=== PATIENT | male | born 1940 | race Caucasian/White ===

== ENCOUNTER 2016-12-11 13:14 | Inpatient (IN) | payer OTHER, MEDICARE ==
[~2016-12-11] VITALS: Ht 157.5 cm; Wt 97.0 kg
[~2016-12-11 13:14] MED LIST: 1-ME1LIQ PO; ASPI81TA17 PO; CO Q200C3 PO; HYDR-2768 PO; ISOS60TA PO; METO50TA PO; MORP30SU PO; PRAV80 PO; SEA-1000 PO; TAB-TAB PO
[2016-12-11 13:16] VITALS: BP 145/66; PULSE 64; RESP 24; TEMP 97.2; O2SAT 85
[2016-12-11] MEDS ORDERED: ATOR1TAB18 PO (13:40)
[2016-12-11] MEDS ORDERED: ASPI81CH CHEW (13:40)
[2016-12-11] MEDS ORDERED: METO50TA PO (13:40)
[2016-12-11] MEDS ORDERED: HYDR25TA5 PO (13:40)
[2016-12-11] MEDS ORDERED: AMLO10TA2 PO (13:40)
[2016-12-11] MEDS ORDERED: NAPR250T PO (13:40)
[2016-12-11] MEDS ORDERED: ISOS60TA PO (13:40)
[2016-12-11] MEDS ORDERED: ACETAMINOPHEN/HYDROcodone 325 MG/5 MG TAB PO ONE (14:30)
--- NOTE | 2016-12-11 14:52 | PD ---
HPI Chief Complaint: Fall Time Seen by Provider: 14:03 Travel History International Travel<30 days: No Contact w/Intl Traveler<30days: No Traveled to known affect area: No History of Present Illness HPI This 76-year-old man who presents to the emergency department complaining of low back pain. He had a slip and fall backward on his back and head a couple days ago. No LOC. Complains now just of some shoulder pain, and severe low back pain. His a history of extensive back surgery with Dr. Tiago Caceres in 2011, with eleno placement. He states that since his surgery he is not been able to sleep lying flat and sleeps in a chair. He also complains of some increased lower extremity edema. No other complaints. History Past Medical History Narrative Medical History of neck and back surgery History of bladder cancer in 1990 CAD, history of CABG Hypertension Hyperlipidemia Social History Alcohol Use: No Tobacco Use: No Allergies-Medications (Allergen,Severity, Reaction): Coded Allergies: Penicillin (Verified Allergy, Severe, Swelling, 12/11/16) Reported Meds & Prescriptions Reported Meds & Active Scripts Active Reported Naproxen 250 Mg Tab 220 Mg PO BID Aspirin 81 Mg Chew 81 Mg CHEW DAILY Atorvastatin (Atorvastatin Calcium) 80 Mg Tab 80 Mg PO HS Amlodipine (Amlodipine Besylate) 10 Mg Tab 10 Mg PO DAILY Hydrochlorothiazide 25 Mg Tab 25 Mg PO DAILY Isosorbide Mononitrate ER (Isosorbide Mononitrate) 60 Mg Tab 60 Mg PO DAILY Metoprolol Tartrate 50 Mg Tab 50 Mg PO BID Review of Systems Except as stated in HPI: all other systems reviewed are Neg Physical Exam Narrative GENERAL: Well-appearing 76-year-old man, no acute distress. SKIN: Focused skin assessment warm/dry. HEAD: Atraumatic. Normocephalic. EYES: Pupils equal and round. No scleral icterus. No injection or drainage. ENT: No nasal bleeding or discharge. Mucous membranes pink and moist. NECK: Trachea midline. No JVD. CARDIOVASCULAR: Regular rate and rhythm. No murmur appreciated. RESPIRATORY: No accessory muscle use. Clear to auscultation. Breath sounds equal bilaterally. GASTROINTESTINAL: Abdomen soft, non-tender, nondistended. Hepatic and splenic margins not palpable. MUSCULOSKELETAL: No obvious deformities. Midline neck and back incisions. Some scarring. Mild diffuse tenderness. No obvious deformities infections or abnormalities. NEUROLOGICAL: Awake and alert. No obvious cranial nerve deficits. Motor grossly within normal limits. Normal speech. PSYCHIATRIC: Appropriate mood and affect; insight and judgment normal. Data Data Last Documented VS Vital Signs Date Time Temp Pulse Resp B/P Pulse Ox O2 Delivery O2 Flow Rate FiO2 12/11/16 13:16 97.2 64 24 145/66 85 Room Air Orders Acetamin-Hydrocod 325-5 Mg (Amo 5-325 (12/11/16 14:30) Spine, Lumbar Comp W/Obliq (12/11/16 ) Spine, Thoracic-Ap/Lat/Sw(3vw) (12/11/16 ) Basic Metabolic Panel (Bmp) (12/11/16 14:47) Morphine Inj (Morphine Inj) (12/11/16 15:15) Complete Blood Count With Diff (12/11/16 16:13) Furosemide Inj (Lasix Inj) (12/11/16 16:15) Ct Lumb Spine W/O Contrast (12/11/16 ) Place In Observation (12/11/16 ) Vital Signs (Adult) Q4H (12/11/16 16:14) Activity Oob With Assistance (12/11/16 16:14) Bedside Glucose BENI.AC&HS (12/11/16 16:14) Intake + Output BENI.QSHIFT (12/11/16 16:14) Diet Heart Healthy (12/11/16 Dinner) Sodium Chloride 0.9% Flush (Ns Flush) (12/11/16 16:15) Sodium Chloride 0.9% Flush (Ns Flush) (12/11/16 21:00) Acetaminophen (Tylenol) (12/11/16 16:15) Ondansetron Inj (Zofran Inj) (12/11/16 16:15) Resp Oxygen Kunal C Titrat 1-4 L (12/11/16 ) Pt Request For Service (12/11/16 16:14) Ot Request For Service (12/11/16 16:14) Heparin Inj (Heparin Inj) (12/11/16 16:15) Scd Bilateral/Knee High BENI.BID (12/11/16 16:14) Acetamin-Hydrocod 325-5 Mg (Amo 5-325 (12/11/16 16:15) Acetamin-Hydrocod 325-10 Mg (Amo 10-32 (12/11/16 16:15) Morphine Inj (Morphine Inj) (12/11/16 16:15) Morphine Inj (Morphine Inj) (12/11/16 16:15) Naloxone Inj (Narcan Inj) (12/11/16 16:15) Docusate Sodium-Senna (Gail-Colace) (12/11/16 21:00) Magnesium Hydroxide Liq (Milk Of Magnesi (12/11/16 16:15) Sennosides (Senokot) (12/11/16 16:15) Bisacodyl Supp (Dulcolax Supp) (12/11/16 16:15) Ct Brain W/O Iv Contrast(Rout) (12/11/16 ) Morphine Inj (Morphine Inj) (12/11/16 16:30) Labs Laboratory Tests Test 12/11/16 15:05 Sodium Level 143 MEQ/L Potassium Level 3.8 MEQ/L Chloride Level 102 MEQ/L Carbon Dioxide Level 36.2 MEQ/L Anion Gap 5 MEQ/L Blood Urea Nitrogen 18 MG/DL Creatinine 0.66 MG/DL Estimat Glomerular Filtration 117 ML/MIN Rate Random Glucose 83 MG/DL Calcium Level 9.3 MG/DL MDM Medical Decision Making Medical Screen Exam Complete: Yes Emergency Medical Condition: Yes Interpretation(s) T-spine x-ray: Previous fusion across the lower thoracic and lumbar spine. No acute fracture. Moderate degenerative disc disease throughout. Mild scoliosis. Lumbar spine x-ray: Previous fixation to the lower thoracic and lumbar spine L4. Left-sided sensation rotted broken at the level of L2. Minimal retrolisthesis of L4 on L5 with advanced degenerative this disease. Chronic retrolisthesis of L3 on L4 status post fusion. Differential Diagnosis Fracture, contusion, strain or sprain, head injury, other Narrative Course Medical decision-making 76-year-old man presents emergent [place] back pain after slip and fall on his back. History of extensive previous surgeries and hardware placement. States he hit his head 2. Is on a baby aspirin everyday. Denies any symptoms at all such as headache or confusion. We'll start with x-rays of his back. Large rods in the back may have scarring utility of CT imaging of the back. Reassess. FINAL: Patient was still severe back pain. X-rays show fractured eleno but no bony fractures. I spoke with Dr. Pfeiffer, patient can follow-up as an outpatient from their perspective for the eleno fracture. There is recommended patient having intractable pain consider CT imaging to look for occult compression fracture. I spoke with Dr. Little, for medicine. Will admit patient observation. We'll go to give him a dose of Lasix to reduce lower extremity edema which may been the cause of the fall to begin with. We'll also get CT of his back, and his head. Diagnosis Primary Impression: Intractable back pain Additional Impression: Fall Corey Harris MD Dec 11, 2016 14:52
[2016-12-11] MEDS ORDERED: MORPHINE SULFATE 4 MG/ML INJ IV ONE (15:15)
--- NOTE | 2016-12-11 15:36 | RADRPT ---
EXAM DATE/TIME: 12/11/2016 14:40 [facility] COMPARISON: [facility] ( [facility]), January 18, 2012, 18:24. INDICATIONS : Upper back pain. Patient fell backwards a few days ago. MEDICAL HISTORY : Hypertension. Hypercholesterolemia. SURGICAL HISTORY : CABG. Lumbar fusion. Cardiac cath. ENCOUNTER: Initial ACUITY: 4 - 6 days PAIN SCORE: 10/10 LOCATION: Bilateral upper back. FINDINGS: There is previous eleno fixation across the lower thoracic and lumbar spine. No acute fracture is ident ified on the current exam. Mild scoliosis. Moderate degenerative disc disease throughout. Previous CA BG. Elevated left hemidiaphragm. CONCLUSION: 1. Previous fusion across the lower thoracic and lumbar spine. No acute fracture. Moderate degenerati ve disc disease throughout. Mild scoliosis. Joe Leonardo MD on December 11, 2016 at 15:32 Board Certified Radiologist. This report was verified electronically.
--- NOTE | 2016-12-11 15:38 | RADRPT ---
EXAM DATE/TIME: 12/11/2016 14:41 [facility] COMPARISON: No previous studies available for comparison. INDICATIONS : Lower back pain. Patient fell backwards a few days ago. MEDICAL HISTORY : Hypertension. Hypercholesterolemia. SURGICAL HISTORY : CABG. Lumbar fusion. Cardiac cath. ENCOUNTER: Initial ACUITY: 4 - 6 days PAIN SCORE: 10/10 LOCATION: Bilateral lower back. FINDINGS: There is previous fusion across the lower thoracic and lumbar spine to the level of L4. There is a mi nimal retrolisthesis of L4 on L5 with advanced degenerative disc disease at L4-5. The left sided fixa tion eleno is broken at the level of L2. There is a residual retrolisthesis of L3 on L4 as well. Scolio sis noted. CONCLUSION: 1. Previous fixation of the lower thoracic and lumbar spine to L4. Left-sided fixation eleno is broken at the level of L2. Minimal retrolisthesis of L4 on L5 with advanced degenerative disc disease. Chron ic retrolisthesis of L3 on L4 status post fusion. Joe Leonardo MD on December 11, 2016 at 15:34 Board Certified Radiologist. This report was verified electronically.
[2016-12-11 15:39] LABS: BICARBONATE 36.2 MEQ/L (21.0-32.0); POTASSIUM 3.8 MEQ/L (3.5-5.1)
[2016-12-11] MEDS ORDERED: ONDANSETRON HCL 4 MG/2 ML VIAL IVP PRN (16:15)
[2016-12-11] MEDS ORDERED: FUROSEMIDE 20 MG/2 ML VIAL IV PUSH ONE (16:15)
[2016-12-11] MEDS ORDERED: NALOXONE HCL 0.4 MG/ML AMP IV PRN (16:15)
[2016-12-11] MEDS ORDERED: BISACODYL 10 MG SUPP RECTAL PRN (16:15)
[2016-12-11] MEDS ORDERED: SODIUM CHLORIDE 0.9% FLUSH 10 ML FLUSH IV FLUSH PRN (16:15)
[2016-12-11] MEDS ORDERED: SENNOSIDES 8.6 MG TAB PO PRN (16:15)
[2016-12-11] MEDS ORDERED: MAGNESIUM HYDROXIDE SUSP 30 ML CUP PO PRN (16:15)
[2016-12-11] MEDS ORDERED: MORPHINE SULFATE 4 MG/ML INJ IV PRN ×2 (16:15)
[2016-12-11] MEDS ORDERED: MORPHINE SULFATE 4 MG/ML INJ IV PUSH PRN (16:30)
--- NOTE | 2016-12-11 17:08 | RADRPT ---
EXAM DATE/TIME: 12/11/2016 16:47 [facility] COMPARISON: No previous studies available for comparison. INDICATIONS : Fall backwards today onto concrete, cephalgia and lower back pain. RADIATION DOSE: 56.35 CTDIvol (mGy) MEDICAL HISTORY : Carcinoma, bladder. Hypertension. Cardiovascular disease SURGICAL HISTORY : laminectomy ENCOUNTER: Initial ACUITY: 1 day PAIN SCALE: 7/10 LOCATION: Bilateral head TECHNIQUE: Multiple contiguous axial images were obtained of the head. Using automated exposure control and adj ustment of the mA and/or kV according to patient size, radiation dose was kept as low as reasonably a chievable to obtain optimal diagnostic quality images. DICOM format image data is available electro nically for review and comparison. FINDINGS: CEREBRUM: The ventricles are normal for age. No evidence of midline shift, mass lesion, hemorrhage or acute in farction. No extra-axial fluid collections are seen. POSTERIOR FOSSA: The cerebellum and brainstem are intact. The 4th ventricle is midline. The cerebellopontine angle i s unremarkable. EXTRACRANIAL: The visualized portion of the orbits is intact. SKULL: The calvaria is intact. No evidence of skull fracture. CONCLUSION: Normal examination for a patient of this age. Joe Leonardo MD on December 11, 2016 at 17:03 Board Certified Radiologist. This report was verified electronically.
[2016-12-11 17:10] LABS: AUTOMATED NEUTROPHIL # 4.6 TH/MM3 (1.8-7.7); BASOPHIL % 0.2 % (0.0-2.0); EOSINOPHIL # 0.3 TH/MM3 (0-0.4); EOSINOPHIL % 3.4 % (0.0-4.0); HEMATOCRIT 49.4 % (39.0-51.0); HEMO FLAGS DIFF FINAL; LYMPH % 26.4 % (9.0-44.0); LYMPHOCYTE # 2.2 TH/MM3 (1.0-4.8); MEAN CELL VOLUME 93.3 FL (80.0-100.0); MEAN CORPUSCULAR HEMOGLOBIN 31.1 PG (27.0-34.0); MEAN CORPUSCULAR HGB CONC 33.3 % (32.0-36.0); MONO % 13.7 % (0.0-8.0); NEUT % 56.3 % (16.0-70.0); PLATELET COUNT 219 TH/MM3 (150-450); RED BLOOD COUNT 5.29 MIL/MM3 (4.50-5.90); RED CELL DISTRIBUTION WIDTH 15.2 % (11.6-17.2); WHITE BLOOD COUNT 8.2 TH/MM3 (4.0-11.0)
[2016-12-11 17:24] VITALS: BP 139/72; PULSE 73; RESP 20
--- NOTE | 2016-12-11 17:28 | RADRPT ---
EXAM DATE/TIME: 12/11/2016 16:51 [facility] COMPARISON: No previous studies available for comparison. INDICATIONS : Fall backwards today onto concrete, cephalgia and lower back pain. RADIATION DOSE: 35.21 CTDIvol (mGy) MEDICAL HISTORY : Hypertension. Cardiovascular disease Carcinoma, bladder. SURGICAL HISTORY : laminectomy ENCOUNTER: Initial ACUITY: 1 day PAIN SCALE: 7/10 LOCATION: Bilateral lower back TECHNIQUE: Volumetric scanning of the lumbar spine was performed. Multiplanar reconstructions in the sagittal, coronal and oblique axial planes were performed. Using automated exposure control and adjustment of the mA and/or kV according to patient size, radiation dose was kept as low as reasonably achievable t o obtain optimal diagnostic quality images. DICOM format image data is available electronically for review and comparison. FINDINGS: There is postoperative eleno fixation of the lower thoracic and lumbar spine to the level of L4. Pedicl e screws are present at [id number] and also at L2, L3 and L4. Left-sided spinal fixation eleno is broken at the level of L2. There is a mild rotatory scoliosis. There is a chronic grade 1 retrolisthesis of L3 on L4 status post fusion. Minimal retrolisthesis of L 4 on L5 with advanced degenerative disc disease at this level. Multiple laminectomy defects are noted in the lumbar spine. No acute fractures seen in the lumbar spine. On the left side there is bony foraminal stenosis or L3- 4-5 and also on the right side. No significant central canal stenosis is identified. CONCLUSION: 1. Postoperative spinal fixation as above. Left-sided fixation eleno is broken at the level of L2. 2. Grade 1 retrolisthesis of L3 on L4 which is fused. 3. No significant bony central canal stenosis. Mild scoliosis. 4. No acute fracture. 5. Incidental small right pleural effusion. Joe Leonardo MD on December 11, 2016 at 17:17 Board Certified Radiologist. This report was verified electronically.
--- NOTE | 2016-12-11 17:57 | HHI.HP ---
HPI Service [facility] Primary Care Physician Bran Garnett MD Admission Diagnosis intractable back pain Diagnoses: Chief Complaint: Back pain, intractable Travel History International Travel<30 Days: No Contact w/Intl Traveler <30 Da: No Traveled to Known Affected Are: No History of Present Illness Written by Maty Steel, acting as scribe for Dr. Little on 12/11/16 at 17:35. Patient is a 76 year old male with primary medical history of HTN, HLD , bladder cancer treated, back surgery in the past who came into the hospital for complaints of severe lower back pain. As per patient pain was 10-1/2 over 10 when he first came in prior to being given pain medication. Now reports that the pain is 8/10, constant, sharp, associated with heavy breathing, relieved by pain medication - given morphine IV. He states that he had a slip and fall backward on his back and had a couple of days ago without any loss of consciousness. States that he have back surgery with eleno placement [place] [address] Tiago Caceres. Patient also reports bilateral lower extremity edema that has been going on for 2 weeks, on and off. He is being seen by [facility] and is to schedule appointment for next month. Denies SOB/ dyspnea. Denies chest pain, palpitations, headaches, dizziness. Denies fevers, chills, n/v/d. Denies dysuria. Review of Systems Except as stated in HPI: all other systems reviewed are Neg Past Family Social History Past Medical History HTN CAD HLD Bladder cancer that was treated Urinary incontinence Past Surgical History CABG in 1997 History of neck and back surgery Reported Medications Reported Meds & Active Scripts Active Reported Naproxen 250 Mg Tab 220 Mg PO BID Aspirin 81 Mg Chew 81 Mg CHEW DAILY Atorvastatin (Atorvastatin Calcium) 80 Mg Tab 80 Mg PO HS Amlodipine (Amlodipine Besylate) 10 Mg Tab 10 Mg PO DAILY Hydrochlorothiazide 25 Mg Tab 25 Mg PO DAILY Isosorbide Mononitrate ER (Isosorbide Mononitrate) 60 Mg Tab 60 Mg PO DAILY Metoprolol Tartrate 50 Mg Tab 50 Mg PO BID Allergies: Coded Allergies: Penicillin (Verified Allergy, Severe, Swelling, 12/11/16) Active Ordered Medications Current Medications Medications (Trade) Dose Ordered Sig/Keisha Route Start Time Stop Time Status Last Admin (NS Flush) 2 ml UNSCH PRN IV FLUSH 12/11/16 16:15 (NS Flush) 2 ml BID IV FLUSH 12/11/16 21:00 (Tylenol) 650 mg Q4H PRN PO 12/11/16 16:15 (Zofran Inj) 4 mg Q6H PRN IVP 12/11/16 16:15 (Heparin Inj) 5,000 units Q8H SQ 12/11/16 18:00 (Preston 5-325 Mg) 1 tab Q4H PRN PO 12/11/16 16:15 (Preston 10-325 Mg) 1 tab Q4H PRN PO 12/11/16 16:15 (Morphine Inj) 4 mg Q4H PRN IV 12/11/16 16:15 (Narcan Inj) 0.4 mg UNSCH PRN IV 12/11/16 16:15 (Gail-Colace) 1 tab BID PO 12/11/16 21:00 (Milk Of Magnesia Liq) 30 ml Q12H PRN PO 12/11/16 16:15 (Senokot) 17.2 mg Q12H PRN PO 12/11/16 16:15 (Dulcolax Supp) 10 mg DAILY PRN RECTAL 12/11/16 16:15 (Morphine Inj) 4 mg ONCE PRN IV PUSH 12/11/16 16:30 12/11/16 16:33 Family History Father of heart failure Mother's medical history include hypertension Social History Reports alcohol use daily, wine every dinner Denies tobacco use Denies illicit drug use Physical Exam Vital Signs Vital Signs Date Time Temp Pulse Resp B/P Pulse Ox O2 Delivery O2 Flow Rate FiO2 12/11/16 17:24 73 20 139/72 12/11/16 13:16 97.2 64 24 145/66 85 Room Air Physical Exam GENERAL: This is a overweight, well-developed patient, in no apparent distress. SKIN: Warm and dry. HEAD: Atraumatic. Normocephalic. No temporal or scalp tenderness. EYES: Pupils equal round and reactive. Extraocular motions intact. No scleral icterus. No injection or drainage. ENT: Nose without bleeding. Throat without erythema. Uvula midline. Airway patent. NECK: Trachea midline. No JVD or lymphadenopathy. CARDIOVASCULAR: Regular rate and rhythm without murmurs, gallops, or rubs. RESPIRATORY: CTA. No wheezes, rales, or rhonchi. GASTROINTESTINAL: Abdomen obese, soft, non-tender, nondistended. Bowel sounds active 4 MUSCULOSKELETAL: Extremities without clubbing, cyanosis, bilateral lower extremity +2 edema. Lumbar tenderness. NEUROLOGICAL: Awake and alert. Oriented to person, place, time. Motor and sensory grossly within normal limits. No focal neuro deficit. Normal speech. Laboratory Laboratory Tests Test 12/11/16 12/11/16 15:05 16:45 Sodium Level 143 Potassium Level 3.8 Chloride Level 102 Carbon Dioxide Level 36.2 Anion Gap 5 Blood Urea Nitrogen 18 Creatinine 0.66 Estimat Glomerular Filtration 117 Rate Random Glucose 83 Calcium Level 9.3 White Blood Count 8.2 Red Blood Count 5.29 Hemoglobin 16.4 Hematocrit 49.4 Mean Corpuscular Volume 93.3 Mean Corpuscular Hemoglobin 31.1 Mean Corpuscular Hemoglobin 33.3 Concent Red Cell Distribution Width 15.2 Platelet Count 219 Mean Platelet Volume 9.8 Neutrophils (%) (Auto) 56.3 Lymphocytes (%) (Auto) 26.4 Monocytes (%) (Auto) 13.7 Eosinophils (%) (Auto) 3.4 Basophils (%) (Auto) 0.2 Neutrophils # (Auto) 4.6 Lymphocytes # (Auto) 2.2 Monocytes # (Auto) 1.1 Eosinophils # (Auto) 0.3 Basophils # (Auto) 0.0 CBC Comment DIFF FINAL Differential Comment Result Diagram: 12/11/16 1645 12/11/16 1505 Imaging Last Impressions Thoracic Spine X-Ray 12/11/16 0000 Signed Impressions: Service Date/Time: Sunday, December 11, 2016 14:40 - CONCLUSION: 1. Previous fusion across the lower thoracic and lumbar spine. No acute fracture. Moderate degenerative disc disease throughout. Mild scoliosis. Joe Leonardo MD Lumbar Spine X-Ray 12/11/16 0000 Signed Impressions: Service Date/Time: Sunday, December 11, 2016 14:41 - CONCLUSION: 1. Previous fixation of the lower thoracic and lumbar spine to L4. Left-sided fixation eleno is broken at the level of L2. Minimal retrolisthesis of L4 on L5 with advanced degenerative disc disease. Chronic retrolisthesis of L3 on L4 status post fusion. Joe Leonardo MD Lumbar Spine CT 12/11/16 0000 Signed Impressions: Service Date/Time: Sunday, December 11, 2016 16:51 - CONCLUSION: 1. Postoperative spinal fixation as above. Left-sided fixation eleno is broken at the level of L2. 2. Grade 1 retrolisthesis of L3 on L4 which is fused. 3. No significant bony central canal stenosis. Mild scoliosis. 4. No acute fracture. 5. Incidental small right pleural effusion. Joe Leonardo MD Head CT 12/11/16 0000 Signed Impressions: Service Date/Time: Sunday, December 11, 2016 16:47 - CONCLUSION: Normal examination for a patient of this age. Joe Leonardo MD Assessment and Plan Problem List: (1) Intractable back pain ICD Code: M54.9 Status: Acute (2) Fall ICD Code: W19.XXXA Status: Acute Assessment and Plan Patient is a 76 year old male with primary medical history of HTN, HLD , bladder cancer treated, back surgery in the past who came into the hospital for complaints of severe lower back pain, status post fall 2 days ago. Status post fall, intractable pain lower back pain - Patient had previous back surgery done by Dr. Caceres. Pain is been unrelieved at home. Patient was provided with IV morphine in the ED with relief. - Head CT showed normal examination for a patient of this age - Lumbar spine CT showed postoperative spinal fixation as above. Left-sided fixation eleno is broken at the level of L2. 2. Grade 1 retrolithiasis of L3 on L4 which is fused. 3. No significant bony central canal stenosis. Mild scoliosis. 4. No acute fracture. 5. Incidental small right pleural effusion - Lumbar spine x-ray showed 1. Previous fixation of the lower thoracic and lumbar spine to L4. Left-sided fixation eleno is broken at the level of L2. Minimal retrolisthesis of L4 on L5 with advanced degenerative disc disease. Chronic retrolisthesis of L3 on L4 status post fusion - Thoracic spine x-ray showed 1. Previous fusion across the lower thoracic and lumbar spine. No acute fracture. Moderate degenerative disc disease throughout. Mild scoliosis. - Spoke with orthopedist, states that no surgical intervention for now, unknown if the left-sided fixation eleno that is broken at the level of L2 is new or old. He will need to follow up as an outpatient. - Continue morphine IV for breakthrough pain, Preston when necessary based on pain scale - If patient's pain is improved tomorrow we'll possibly discharge and have a follow-up with orthopedic as an outpatient History of CABG, now with bilateral lower extremity edema - On and off edema 2 weeks, patient has been compliant with medication hydrochlorothiazide as prescribed by lead php developer - Patient is being followed by [facility] - Will do 2-D echo to rule out heart failure - Also had incidental finding of pleural effusion on CT - Lasix 20 mg IV given, will continue with diuresis - May be dcd with lasix po if warranted EtOH use - CIWA protocol, monitor for withdrawals. - Folic acid, thiamine supplementation HTN - Continue with home meds - Monitor trend DVT prop heparin Code Status Full code Discussed Condition With Patient, , nursing, ED attending This note was transcribed by scribe []. I, Dr. Renay Little personally performed the history, physical exam, and medical decision making; and confirmed the accuracy of the information in the transcribed note. Authenticated by Dr. Renay Little on 12/11/16 at 19:37. Maty Jenkins Dec 11, 2016 17:56 Renay Little MD Dec 11, 2016 19:38
[2016-12-11] MEDS: HEPARIN SODIUM - SQ 10,000 UNITS/ML VIAL SQ SCH (18:00)
[2016-12-11] MEDS: FOLIC ACID 1 MG TAB PO SCH (18:52)
[2016-12-11] MEDS: THIAMINE HCL 100 MG TAB PO SCH (18:52)
[2016-12-11 19:26] VITALS: BP 138/70; PULSE 77; RESP 16; TEMP 98.4; O2SAT 89
[2016-12-11] MEDS ORDERED: LORazepam 1 MG TAB PO PRN (19:45)
[2016-12-11] MEDS ORDERED: FLUMAZENIL 0.5 MG/5 ML VIAL IV PUSH PRN (19:45)
[2016-12-11] MEDS ORDERED: LORazepam 2 MG/ML VIAL IV PUSH PRN ×4 (19:45)
[2016-12-11] MEDS ORDERED: LORazepam 2 MG TAB PO PRN (19:45)
[2016-12-11 21:00] VITALS: O2SAT 90
[2016-12-11] MEDS: DOCUSATE SODIUM 50 MG/SENNA 8.6 MG TAB PO SCH (21:00)
[2016-12-11 21:45] VITALS: RESP 20; O2SAT 85
[2016-12-11] MEDS: ATORVASTATIN 80 MG TAB PO SCH (21:46)
[2016-12-11] MEDS: ACETAMINOPHEN/HYDROcodone 325 MG/10 MG TAB PO PRN (21:47)
[2016-12-11] MEDS: METOPROLOL TARTRATE 50 MG TAB PO SCH (21:47)
[2016-12-11] MEDS: SODIUM CHLORIDE 0.9% FLUSH 10 ML FLUSH IV FLUSH SCH (21:48)
[2016-12-11 22:00] VITALS: O2SAT 97
[2016-12-11] MEDS ORDERED: FUROSEMIDE 40 MG/4 ML VIAL IV PUSH ONE (22:45)
[2016-12-11 23:03] LABS: BLOOD GAS BASE EXCESS 11.7 mmol/L (-2-2); BLOOD GAS CARBOXYHEMOGLOBIN 1.6 % (0-4); BLOOD GAS HCO3 38 mmol/L (22-26); BLOOD GAS METHEMOGLOBIN 1.1 % (0-2); BLOOD GAS O2 HGB SATURATION 97 % (90-100); BLOOD GAS OXYGEN CONTENT 20.7 Vol % (12.0-20.0); BLOOD GAS PCO2 77 mmHg (38-42); BLOOD GAS PO2 288 mmHG (61-120); BLOOD GAS TOTAL HGB 14.8 G/DL (12.0-16.0); TEMP CORR TO 98.6
[2016-12-11 23:04] LABS: CRITICAL VALUE YES; FIO2 100 %; LITER FLOW 15 L/M; OXYGEN DEVICE NRB
[2016-12-11 23:05] LABS: DRAW SITE RT RADIAL; NUMBER OF ARTERIAL PUNCTURES 1; STAT YES; ULNAR PULSE PRESENT
--- NOTE | 2016-12-11 23:07 | RADRPT ---
EXAM DATE/TIME: 12/11/2016 22:37 [facility] COMPARISON: No previous studies available for comparison. INDICATIONS : Congestion. Cough. MEDICAL HISTORY : Cardiovascular disease. SURGICAL HISTORY : CABG. ENCOUNTER: Subsequent ACUITY: 3 days PAIN SCORE: 6/10 LOCATION: Bilateral chest FINDINGS: A single view of the chest demonstrates the lungs to be symmetrically aerated without evidence of mas s, infiltrate or effusion. Clips and wires suggest CABG. Left hemidiaphragm is slightly elevated. Pre vious thoracic lumbar fusion. The cardiomediastinal contours are unremarkable. Osseous structures ar e intact. CONCLUSION: Normal examination. Status post CABG Corey Mayes MD on December 11, 2016 at 23:05 Board Certified Radiologist. This report was verified electronically.
[2016-12-12] VITALS (17 sets, daily range): BP systolic 119–139; BP diastolic 60–83; PULSE 58–91; RESP 10–20; TEMP 98.2–99.1; O2SAT 88–99
[2016-12-12] MEDS: HEPARIN SODIUM - SQ 10,000 UNITS/ML VIAL SQ SCH ×3 (00:53→19:10)
[2016-12-12 04:03] LABS: BLOOD GAS BASE EXCESS 9.7 mmol/L (-2-2); BLOOD GAS CARBOXYHEMOGLOBIN 1.8 % (0-4); BLOOD GAS HCO3 36 mmol/L (22-26); BLOOD GAS METHEMOGLOBIN 1.5 % (0-2); BLOOD GAS O2 HGB SATURATION 92 % (90-100); BLOOD GAS OXYGEN CONTENT 20.5 Vol % (12.0-20.0); BLOOD GAS PCO2 78 mmHg (38-42); BLOOD GAS PO2 87 mmHg (61-120); BLOOD GAS TOTAL HGB 15.7 G/DL (12.0-16.0); TEMP CORR TO 98.6
[2016-12-12 04:05] LABS: CRITICAL VALUE YES; OXYGEN DEVICE BIPAP
[2016-12-12 04:06] LABS: DRAW SITE RT RADIAL; FIO2 45 %; NUMBER OF ARTERIAL PUNCTURES 1
[2016-12-12 06:14] LABS: BLOOD GAS BASE EXCESS 10.2 mmol/L (-2-2); BLOOD GAS CARBOXYHEMOGLOBIN 1.8 % (0-4); BLOOD GAS HCO3 37 mmol/L (22-26); BLOOD GAS METHEMOGLOBIN 1.5 % (0-2); BLOOD GAS O2 HGB SATURATION 94 % (90-100); BLOOD GAS OXYGEN CONTENT 20.3 Vol % (12.0-20.0); BLOOD GAS PCO2 82 mmHg (38-42); BLOOD GAS PO2 102 mmHg (61-120); BLOOD GAS TOTAL HGB 15.3 G/DL (12.0-16.0); TEMP CORR TO 98.6
[2016-12-12 06:16] LABS: CRITICAL VALUE YES; DRAW SITE LT RADIAL; FIO2 45 %; NUMBER OF ARTERIAL PUNCTURES 1; OXYGEN DEVICE BIPAP; STAT NO; ULNAR PULSE Y
[2016-12-12] MEDS ORDERED: ATROPINE SULFATE 1 MG/10 ML SYRINGE ONE (07:43)
[2016-12-12] MEDS ORDERED: RESP: ALBUTEROL 2.5 MG/IPRATROPIUM 0.5 MG NEB (PRN) NEB (07:45)
[2016-12-12] MEDS: RESP: ALBUTEROL 2.5 MG/IPRATROPIUM 0.5 MG NEB (SCH) NEB ×5 (07:45→23:43)
[2016-12-12] MEDS ORDERED: methylPREDNISolone SOD SUCC 125 MG/2 ML VIAL IV PUSH ONE (07:45)
--- NOTE | 2016-12-12 08:36 | PD.CONS ---
HPI Service Critical Care Medicine Consult Requested By [facility] Reason for Consult Acute resp failure with CO2 retention. Primary Care Physician Bran Garnett MD History of Present Illness Chief Complaint: Back pain, intractable Travel History International Travel<30 Days: No Contact w/Intl Traveler <30 Da: No Traveled to Known Affected Are: No History of Present Illness Patient is a 76 year old male with primary medical history of HTN, HLD , bladder cancer treated, back surgery in the past who came into the hospital for complaints of severe lower back pain. Per documentation, pain was 10-1/2 over 10 when he first came in prior to being given pain medication, constant, sharp, associated with heavy breathing, relieved by pain medication - given morphine IV. He states that he had a slip and fall backward on his back and had a couple of days ago without any loss of consciousness. States that he have back surgery with eleno placement [place] [address] Tiago Caceres. Patient also reports bilateral lower extremity edema that has been going on for 2 weeks, on and off. He is being seen by [facility] and is to schedule appointment for next month. Denied SOB/ dyspnea. Denies chest pain, palpitations, headaches, dizziness. Denies fevers, chills, n/v/d. Denies dysuria. Patient received 12mg Morphine and 2 doses of Stapleton in last 18 hours. He dropped O2sat last night, underwent serial ABGs, initially pCO2 78 on 100% NRBM and subsequently pCO2 82 on BIPAP 12/5 35% FiO2 - patient being transferred to ICU, critical care consult requested by [facility] for worsening resp failure, CO2 retention. I evaluated patient immediately on his arrival to CVICU. At that time he was awake and alert, following commands appropriately. Denied worsening shortness of breath or chest pain. He has a h/o smoking 20 pack years and quit smoking 7 years ago. He states that he has not been diagnosed with COPD and does not use bronchodilators at home. ROS - General Review of Systems Limited as pt on BIPAP Except as stated in HPI: all other systems reviewed are Neg PFSH Past Family Social History Past Medical History HTN CAD HLD Bladder cancer that was treated Urinary incontinence Past Surgical History CABG in 1997 History of neck and back surgery Reported Medications Reported Meds & Active Scripts Active Reported Naproxen 250 Mg Tab 220 Mg PO BID Aspirin 81 Mg Chew 81 Mg CHEW DAILY Atorvastatin (Atorvastatin Calcium) 80 Mg Tab 80 Mg PO HS Amlodipine (Amlodipine Besylate) 10 Mg Tab 10 Mg PO DAILY Hydrochlorothiazide 25 Mg Tab 25 Mg PO DAILY Isosorbide Mononitrate ER (Isosorbide Mononitrate) 60 Mg Tab 60 Mg PO DAILY Metoprolol Tartrate 50 Mg Tab 50 Mg PO BID Allergies: Coded Allergies: Penicillin (Verified Allergy, Severe, Swelling, 12/11/16) Administered Medications Medications (Trade) Dose Ordered Sig/Keisha Route PRN Reason Start Time Stop Time Status Last Admin Dose Admin Sodium Chloride (NS Flush) 2 ml BID IV FLUSH 12/11/16 21:00 12/11/16 21:48 Heparin Sodium (Porcine) (Heparin Inj) 5,000 units Q8H SQ 12/11/16 18:00 12/12/16 00:53 Acetaminophen/ Hydrocodone Bitart (Stapleton 10-325 Mg) 1 tab Q4H PRN PO PAIN SCALE 6 TO 10 12/11/16 16:15 12/11/16 21:47 Morphine Sulfate (Morphine Inj) 4 mg Q4H PRN IV breakthrough pain 12/11/16 16:15 12/12/16 00:54 Thiamine HCl (Vitamin B1) 100 mg DAILY PO 12/11/16 18:00 12/11/16 18:52 Folic Acid (Folate) 1 mg DAILY PO 12/11/16 18:00 12/11/16 18:52 Atorvastatin Calcium (Lipitor) 80 mg HS PO 12/11/16 21:00 12/11/16 21:46 Metoprolol Tartrate (Lopressor) 50 mg BID PO 12/11/16 21:00 12/11/16 21:47 Family History Father of heart failure Mother's medical history include hypertension Social History Reports alcohol use daily, wine every dinner h/o smoking 20 pack years, quit 7 years ago. Denies illicit drug use Physical Exam Vital Signs Vital Signs Date Time Temp Pulse Resp B/P Pulse Ox O2 Delivery O2 Flow Rate FiO2 12/12/16 07:00 98.7 66 18 132/63 96 12/12/16 04:00 60 12/12/16 04:00 66 18 125/83 99 12/12/16 03:00 66 12/12/16 02:00 58 12/12/16 01:05 98 45 12/12/16 01:00 60 12/12/16 00:35 66 12/12/16 00:30 98.4 77 20 139/69 99 12/11/16 22:00 97 Non-Rebreather 15.00 100 12/11/16 21:45 20 85 12/11/16 21:00 90 Nasal Cannula 6.00 12/11/16 19:26 98.4 77 16 138/70 89 12/11/16 17:24 73 20 139/72 12/11/16 13:16 97.2 64 24 145/66 85 Room Air Physical Exam HEENT/ Neuro: AAO x3, No pallor/ icterus. Neck: No JVD Chest: Air entry decreased bilaterally at bases, no wheezing/ crackles. On BIPAP with full facemask CVS: S1S2 regular, no murmur Abd: soft, nontender, BS present Ext: warm bilaterally, bilateral pitting edema. Laboratory Laboratory Tests Test 12/11/16 12/11/16 12/11/16 12/12/16 15:05 16:45 22:35 03:23 Sodium Level 143 Potassium Level 3.8 Chloride Level 102 Carbon Dioxide Level 36.2 Anion Gap 5 Blood Urea Nitrogen 18 Creatinine 0.66 Estimat Glomerular Filtration 117 Rate Random Glucose 83 Calcium Level 9.3 White Blood Count 8.2 Red Blood Count 5.29 Hemoglobin 16.4 Hematocrit 49.4 Mean Corpuscular Volume 93.3 Mean Corpuscular Hemoglobin 31.1 Mean Corpuscular Hemoglobin 33.3 Concent Red Cell Distribution Width 15.2 Platelet Count 219 Mean Platelet Volume 9.8 Neutrophils (%) (Auto) 56.3 Lymphocytes (%) (Auto) 26.4 Monocytes (%) (Auto) 13.7 Eosinophils (%) (Auto) 3.4 Basophils (%) (Auto) 0.2 Neutrophils # (Auto) 4.6 Lymphocytes # (Auto) 2.2 Monocytes # (Auto) 1.1 Eosinophils # (Auto) 0.3 Basophils # (Auto) 0.0 CBC Comment DIFF FINAL Differential Comment Blood Gas Puncture Site RT RADIAL RT RADIAL Blood Gas Patient Temperature 98.6 98.6 Blood Gas HCO3 38 36 Blood Gas Base Excess 11.7 9.7 Blood Gas Oxygen Saturation 97 92 Arterial Blood pH 7.32 7.29 Arterial Blood Partial 77 78 Pressure CO2 Arterial Blood Partial 288 87 Pressure O2 Arterial Blood Oxygen Content 20.7 20.5 Arterial Blood 1.6 1.8 Carboxyhemoglobin Arterial Blood Methemoglobin 1.1 1.5 Blood Gas Hemoglobin 14.8 15.7 Oxygen Delivery Device NRB BIPAP Blood Gas Liter Flow 15 Blood Gas Inspired Oxygen 100 45 Blood Gas Ventilator Setting PEEP5,IPAP 10, Test 12/12/16 06:00 Blood Gas Puncture Site LT RADIAL Blood Gas Patient Temperature 98.6 Blood Gas HCO3 37 Blood Gas Base Excess 10.2 Blood Gas Oxygen Saturation 94 Arterial Blood pH 7.28 Arterial Blood Partial 82 Pressure CO2 Arterial Blood Partial 102 Pressure O2 Arterial Blood Oxygen Content 20.3 Arterial Blood 1.8 Carboxyhemoglobin Arterial Blood Methemoglobin 1.5 Blood Gas Hemoglobin 15.3 Oxygen Delivery Device BIPAP Blood Gas Ventilator Setting PEEP5,IPAP12 Blood Gas Inspired Oxygen 45 Result Diagram: 12/11/16 1645 12/11/16 1505 Imaging Last Impressions Thoracic Spine X-Ray 12/11/16 0000 Signed Impressions: Service Date/Time: Sunday, December 11, 2016 14:40 - CONCLUSION: 1. Previous fusion across the lower thoracic and lumbar spine. No acute fracture. Moderate degenerative disc disease throughout. Mild scoliosis. Joe Leonardo MD Lumbar Spine X-Ray 12/11/16 0000 Signed Impressions: Service Date/Time: Sunday, December 11, 2016 14:41 - CONCLUSION: 1. Previous fixation of the lower thoracic and lumbar spine to L4. Left-sided fixation eleno is broken at the level of L2. Minimal retrolisthesis of L4 on L5 with advanced degenerative disc disease. Chronic retrolisthesis of L3 on L4 status post fusion. Joe Leonardo MD Lumbar Spine CT 12/11/16 0000 Signed Impressions: Service Date/Time: Sunday, December 11, 2016 16:51 - CONCLUSION: 1. Postoperative spinal fixation as above. Left-sided fixation eleno is broken at the level of L2. 2. Grade 1 retrolisthesis of L3 on L4 which is fused. 3. No significant bony central canal stenosis. Mild scoliosis. 4. No acute fracture. 5. Incidental small right pleural effusion. Joe Leonardo MD Head CT 12/11/16 0000 Signed Impressions: Service Date/Time: Sunday, December 11, 2016 16:47 - CONCLUSION: Normal examination for a patient of this age. Joe Leonardo MD Chest X-Ray 12/11/16 0000 Signed Impressions: Service Date/Time: Sunday, December 11, 2016 22:37 - CONCLUSION: Normal examination. Status post CABG Corey Mayes MD Assessment and Plan Assessment and Plan 76 y/o male with: Acute resp failure requiring BIPAP Probable COPD Acute on chronic resp acidosis sec to probable COPD, narcotics HTN CAD H/o CABG Edema Hyperlipidemia Chronic back pain H/o spinal fusion by Dr. Caceres Plan: Neuro: Avoid sedatives. Hold prn Morphine. Continue Stapleton prn for back pain. CVS: Continue lasix/ statin/ Imdur/ betablocker, ASA. Continue amlodipine for HTN. F/u 2D echo. Pulm: Started on BIPAP 05/17, titrate FiO2 to keep O2sat 89-91%. Start solumedrol 125mg IV stat and 40mg [id number] for suspected underlying COPD/ emphysema. Duonebs Q6 and Q2hrly prn. Pulm consult for further evaluation for COPD. GI/ liver: PO diet if tolerates being off BIPAP. Renal/ : Strict I/O, monitor/ replete electrolytes, follow BUN/ Cr. Continue lasix for leg edema ID: no abx at this time. Heme: follow CBC Prophylaxis: Lovenox, SCDs. Time spent on critical care excluding procedures: 50 minutes Parrish Dominguez MD Dec 12, 2016 08:36
[2016-12-12] MEDS ORDERED: FUROSEMIDE 20 MG TAB PO SCH (09:00)
[2016-12-12] MEDS: METOPROLOL TARTRATE 50 MG TAB PO SCH ×2 (09:00→21:16)
[2016-12-12] MEDS: FUROSEMIDE 20 MG/2 ML VIAL IV PUSH SCH (09:52)
[2016-12-12] MEDS: ASPIRIN 81 MG CHEW TAB CHEW SCH (09:52)
[2016-12-12] MEDS: HYDROCHLOROTHIAZIDE 25 MG TAB PO SCH (09:52)
[2016-12-12] MEDS: DOCUSATE SODIUM 50 MG/SENNA 8.6 MG TAB PO SCH ×2 (09:52→21:16)
[2016-12-12] MEDS: POTASSIUM CHLORIDE 10 MEQ CONTROLLED RELEASE TAB PO SCH (09:53)
[2016-12-12] MEDS: THIAMINE HCL 100 MG TAB PO SCH (09:53)
[2016-12-12] MEDS: FOLIC ACID 1 MG TAB PO SCH (09:53)
[2016-12-12] MEDS: SODIUM CHLORIDE 0.9% FLUSH 10 ML FLUSH IV FLUSH SCH ×2 (09:53→21:16)
--- NOTE | 2016-12-12 10:02 | ECHRPT ---
Indication: Heart failure, unspecified CONCLUSIONS Normal left ventricular size. Wall thickness is normal. The left ventricular systolic function is low normal with an estimated ejection fraction in the rang e of 50- 55%. There was limited left ventricular wall motion assessment due to poor endocardial visualization. The right ventricle was not well visualized. The left atrial size is mildly dilated. The right atrium is not well visualized. The interatrial septum not well visualized. The aortic root and proximal ascending aorta are not well visualized. The mitral valve is not well visualized. Mild thickening of the mitral valve leaflets. No mitral valve stenosis. No mitral valve regurgitation. The aortic valve is not well visualized. Mild thickening of the aortic valve leaflets. No aortic valve regurgitation. No aortic valve stenosis. The tricuspid valve is not well visualized. There is trace tricuspid valve regurgitation. The pulmonary valve is not well visualized. The inferior vena cava was not well visualized. BP: / HR: Rhythm: MEASUREMENTS (Male / Female) Normal Values Technical Quality:Technically difficult study, Poo r 2D ECHO LV Systolic Diameter PLAX 3.6 cm IVS Diastolic Thickness 1.4 cm 0.6 - 1.0 / 0.6 - 0.9 cm LVPW Diastolic Thickness 1.1 cm 0.6 - 1.0 / 0.6 - 0.9 cm RV Internal Dim ED PLAX 3.6 cm LV Ejection Fraction MOD 4C 53.7 % LV Ejection Fraction 4C AL 54.1 % M-MODE Aortic Root Diameter MM 3.2 cm LA Systolic Diameter MM 5.2 cm LA Ao Ratio MM 1.6 AV Cusp Separation MM 2.3 cm DOPPLER Mitral E Point Velocity 108.0 cm/s Mitral A Point Velocity 117.0 cm/s Mitral E to A Ratio 0.9 LV E' Lateral Velocity 8.2 cm/s Mitral E to LV E' Lateral Ratio 13.2 LV E' Septal Velocity 6.8 cm/s Mitral E to LV E' Septal Ratio 15.8 FINDINGS LEFT VENTRICLE Normal left ventricular size. Wall thickness is normal. The left ventricular systolic function is low normal with an estimated ejection fraction in the rang e of 50- 55%. There was limited left ventricular wall motion assessment due to poor endocardial visualization. RIGHT VENTRICLE The right ventricle was not well visualized. LEFT ATRIUM The left atrial size is mildly dilated. RIGHT ATRIUM The right atrium is not well visualized. ATRIAL SEPTUM The interatrial septum not well visualized. AORTA The aortic root and proximal ascending aorta are not well visualized. MITRAL VALVE The mitral valve is not well visualized. Mild thickening of the mitral valve leaflets. No mitral valve stenosis. No mitral valve regurgitation. AORTIC VALVE The aortic valve is not well visualized. Mild thickening of the aortic valve leaflets. No aortic valve regurgitation. No aortic valve stenosis. TRICUSPID VALVE The tricuspid valve is not well visualized. There is trace tricuspid valve regurgitation. PULMONARY VALVE The pulmonary valve is not well visualized. VESSELS The inferior vena cava was not well visualized. PERICARDIUM No pericardial effusion. Ren Pittman MD (Electronically Signed) Final Date:12 December 2016 10:01
[2016-12-12 10:10] LABS: BICARBONATE 38.4 MEQ/L (21.0-32.0); POTASSIUM 3.5 MEQ/L (3.5-5.1)
--- NOTE | 2016-12-12 10:16 | OTSOAPIP ---
TIME SESSION COMPLETED: 10 TREATMENT TIME: 0 MINS. CHART REVIEWED. S: PATIENT WAS TRANSFERRED FROM [facility] TO [facility] DUE TO ACUTE RESPIRATORY FAILURE REQUIRING BIPAP AND ELEVATED CO2. SPOKE WITH NURSE WILL REQUIRE RESTART WHEN RESPIRATORY STATUS STABLE. Therapist: Blanca Worthington OTR/L Signature on file
[2016-12-12] MEDS: ACETAMINOPHEN 325 MG TAB PO PRN (11:10)
[2016-12-12] MEDS: ISOSORBIDE MONONITRATE 60 MG TAB PO SCH (12:06)
[2016-12-12 13:07] LABS: BLOOD GAS HCO3 37 mmol/L (22-26); BLOOD GAS METHEMOGLOBIN 1.5 % (0-2); BLOOD GAS O2 HGB SATURATION 92 % (90-100); BLOOD GAS OXYGEN CONTENT 19.8 Vol % (12.0-20.0); BLOOD GAS PCO2 66 mmHg (38-42); BLOOD GAS PO2 76 mmHg (61-120); BLOOD GAS TOTAL HGB 15.3 G/DL (12.0-16.0); CRITICAL VALUE YES; DRAW SITE RT RADIAL; LITER FLOW 3 L/M; NUMBER OF ARTERIAL PUNCTURES 1; OXYGEN DEVICE NASAL CANNULA; STAT NO; TEMP CORR TO 98.6
[2016-12-12] MEDS ORDERED: MORPHINE SULFATE 4 MG/ML INJ IV PUSH ONE (14:45)
[2016-12-12] MEDS: BUDESONIDE-FORMOTEROL 160/4.5 MCG INHALER INH SCH ×2 (14:50→21:17)
--- NOTE | 2016-12-12 15:32 | MB ---
cc: KARI CRAMER M.D. DATE OF CONSULTATION: 12/12/2016. REASON FOR CONSULTATION: Pulmonary consultation. HISTORY OF PRESENT ILLNESS: The patient is a 76-year-old male with past medical history of hypertension, hyperlipidemia, bladder carcinoma, coronary artery disease with previous CABG in [address] [facility] with complaints of severe lower back pain. The patient had back surgery with eleno placement in 2011. A lumbar spine CT showed postop spinal fixation, mild scoliosis and no acute fracture. The patient went into respiratory distress last night and was placed on 100% oxygen. ABG showed acute hypercapnic respiratory acidosis with a pH of 7.32, CO2 77, pAO2 288, bicarb 38 and saturation of 97%. During the night, the patient was placed on BiPAP and his last ABG from 06:00 a.m. showed respiratory acidosis as well with a pH of 7.28, CO2 82, pAO2 102, bicarb 37, sats 94% on BiPAP 12/5 with 45% FIO2. He was given Lasix 220 milligrams IV and Solu-Medrol 125 milligrams IV push at 08:30 this morning. When seen, the patient is on nasal cannula with saturation ranging between 88% and 94%. He states that he is able to walk two blocks without any significant issues. He denies any associated symptoms of the chest pain, orthopnea, PND. In addition, he denies any wheezing, cough or any constitutional symptoms. The patient quit smoking 25 years ago. He denies any prior history of COPD. In addition, he is not on any home oxygen and does not use any nebulizers at home. Chest x-ray from last night showed no acute cardiopulmonary disease. PAST MEDICAL HISTORY: Past medical history significant for: 1. Hypertension. 2. Coronary artery disease . 3. Hyperlipidemia. 4. Bladder cancer. 5. Urinary incontinence. PAST SURGICAL HISTORY: 1. Previous CABG in 1997. 2. Previous neck and back surgery. ALLERGIES: 1. PENICILLIN -- SWELLING. SOCIAL HISTORY The patient quit smoking over 20 years ago. Denies any illicit drug use. Drinks wine daily during dinner. FAMILY HISTORY: Hypertension and coronary artery disease run in the family. CURRENT MEDICATIONS: 1. Staples for pain. 2. DuoNeb. 3. Norvasc. 4. Aspirin. 5. Lipitor. 6. Lasix. 7. Solu-Medrol. 8. Lopressor. 9. Thiamine. REVIEW OF SYSTEMS: The review of systems is as per the history of present illness, and the rest of the review of systems is unremarkable. PHYSICAL EXAMINATION: GENERAL: 76-year-old male lying in bed in mild respiratory distress. VITAL SIGNS: Temperature 98.4, pulse of 70, blood pressure 122/63, saturation 88% to 94%. HEAD, EYES, EARS, NOSE, THROAT: Normocephalic and atraumatic. Pupils equal, round and reactive to light and accommodation. Extraocular muscles intact. Conjunctivae are pink. Nonicteric sclerae. Oral mucosa within normal limits. NECK: The neck is supple. No jugular venous distention, adenopathy or thyromegaly. Trachea in the midline. CARDIOVASCULAR: Regular rate and rhythm. Normal S1-S2. No murmurs, rubs or gallops noted. PULMONARY: Bilateral equal air entry. No wheezing. ABDOMEN: The abdomen is soft, nontender and no distention. Positive bowel sounds. EXTREMITIES: No cyanosis, clubbing and 1+ edema. NEUROLOGIC: No focal sensory deficit. LABORATORY DATA: ABG from 06:00 a.m. showed a pH of 7.28, CO2 82, pAO2 102, bicarb 37, sats of 94% on 125 of 45% FIO2. Sodium 140, potassium 3.5, chloride 98, CO2 38, BUN 20, creatinine 0.68, glucose 122. WBC 8.2, hemoglobin 16.4, hematocrit 49, platelet count 219,000. RADIOGRAPHY: Chest x-ray showed no evidence of any acute cardiopulmonary disease. CT brain showed no acute intracranial findings. CARDIOLOGY STUDIES: Echocardiogram showed an ejection fraction of 50% to 55%. IMPRESSION: 1. Acute hypercapnic respiratory failure. 2. Probable COPD exacerbation. 3. Hypertension. 4. Coronary artery disease with previous CABG. 5. Hyperlipidemia. 6. Chronic back pain. 7. History of spinal fusion. 8. History of tobacco abuse. RECOMMENDATIONS: 1. Continue with oxygen and maintain sats above 92%. 2. Bronchodilators. We will change DuoNeb to q.4 + q.2 p.r.n. for shortness of breath. 3. In addition, we will start the patient on Symbicort 160/4.5 two puffs q. 12 hours. 4. Increase Solu-Medrol to 40 milligrams IV q.8. 5. Will proceed with CT angiogram of the chest to rule out pulmonary embolism and for further evaluation of pulmonary parenchyma. 6. Will need to assess for need for home oxygen prior to discharge. 7. Will need pulmonary function test as an outpatient to assess the severity of his obstructive lung disease. 8. Noninvasive positive pressure ventilation p.r.n. for respiratory distress. 9. Monitor renal function, intake and output and electrolyte replacement as needed. 10. Continue with diuretics. He was placed on Lasix 20 mg IV daily. 11. Continue current treatment plan per primary team. 12. GI and DVT prophylaxis. The patient is on heparin subcu. Further recommendations will be based on hospital course. Thank you for the consultation and for allowing us to participate in this patient's care. MD INO Almanza/KRYSTIAN /1:05 PM /3:22 PM YOHANNES
[2016-12-12] MEDS ORDERED: IOHEXOL 350 MG/ML 10 ML VIAL (for RAD DIAG) IV ONE (15:35)
--- NOTE | 2016-12-12 16:23 | RADRPT ---
EXAM DATE/TIME: 12/12/2016 15:35 [facility] COMPARISON: No previous studies available for comparison. INDICATIONS : Chest pain, back pain IV CONTRAST: 75 cc Omnipaque 350 (iohexol) IV RADIATION DOSE: 23.27 CTDIvol (mGy) MEDICAL HISTORY : Cardiovascular disease. Hypertension. Carcinoma, bladder. SURGICAL HISTORY : None. ENCOUNTER: Initial ACUITY: 2 days PAIN SCALE: 10/10 LOCATION: Bilateral back. TECHNIQUE: Volumetric scanning of the chest was performed using a pulmonary embolism protocol MIP images were re constructed. Using automated exposure control and adjustment of the mA and/or kV according to patien t size, radiation dose was kept as low as reasonably achievable to obtain optimal diagnostic quality images. DICOM format image data is available electronically for review and comparison. FINDINGS: No filling defects identified to suggest pulmonary embolic disease. Central pulmonary arteries are en larged, especially on the right side that may indicate pulmonary arterial hypertension. Severe shea ry artery calcifications. Trace pleural effusions. Left basilar lung consolidation probably represents atelectasis. No pneumoth orax. CONCLUSION: 1. Negative for pulmonary embolus. Enlarged central pulmonary arteries. There are severe coronary art edna calcifications. Post Operative CABG. Joe Leonardo MD on December 12, 2016 at 16:17 Board Certified Radiologist. This report was verified electronically.
[2016-12-12] MEDS ORDERED: methylPREDNISolone SOD SUCC 40 MG/1 ML VIAL IV PUSH SCH (18:00)
[2016-12-12] MEDS: ATORVASTATIN 80 MG TAB PO SCH (21:16)
[2016-12-12] MEDS: methylPREDNISolone SOD SUCC 40 MG/1 ML VIAL IV PUSH SCH (21:17)
[2016-12-13] VITALS (15 sets, daily range): BP systolic 108–169; BP diastolic 49–84; PULSE 57–96; RESP 18–22; TEMP 97.7–99.1; O2SAT 89–98
[2016-12-13] MEDS: HEPARIN SODIUM - SQ 10,000 UNITS/ML VIAL SQ SCH ×3 (02:00→18:00)
[2016-12-13] MEDS: RESP: ALBUTEROL 2.5 MG/IPRATROPIUM 0.5 MG NEB (SCH) NEB ×6 (03:27→23:46)
[2016-12-13 05:02] LABS: AUTOMATED NEUTROPHIL # 5.2 TH/MM3 (1.8-7.7); BASOPHIL % 0.1 % (0.0-2.0); HEMATOCRIT 46.1 % (39.0-51.0); HEMO FLAGS DIFF FINAL; LYMPH % 6.5 % (9.0-44.0); LYMPHOCYTE # 0.4 TH/MM3 (1.0-4.8); MEAN CELL VOLUME 93.7 FL (80.0-100.0); MEAN CORPUSCULAR HEMOGLOBIN 30.5 PG (27.0-34.0); MEAN CORPUSCULAR HGB CONC 32.5 % (32.0-36.0); MONO % 4.8 % (0.0-8.0); NEUT % 88.6 % (16.0-70.0); PLATELET COUNT 148 TH/MM3 (150-450); RED BLOOD COUNT 4.91 MIL/MM3 (4.50-5.90); WHITE BLOOD COUNT 5.9 TH/MM3 (4.0-11.0)
[2016-12-13] MEDS: ACETAMINOPHEN 325 MG TAB PO PRN (05:22)
[2016-12-13] MEDS: methylPREDNISolone SOD SUCC 40 MG/1 ML VIAL IV PUSH SCH ×2 (05:22→14:59)
[2016-12-13 06:02] LABS: ALKALINE PHOSPHATASE 52 U/L (45-117); ALT (GPT) 24 U/L (12-78); ANION GAP 3 MEQ/L (5-15); AST (GOT) 18 U/L (15-37); BLOOD UREA NITROGEN 17 MG/DL (7-18); CHLORIDE 95 MEQ/L (98-107); GLOMERULAR FILTRATION RATE 136 ML/MIN (>89); SODIUM (NA) 139 MEQ/L (136-145); TOTAL BILIRUBIN ADULT 0.4 MG/DL (0.2-1.0)
[2016-12-13 06:05] LABS: POTASSIUM 2.9 MEQ/L (3.5-5.1)
[2016-12-13] MEDS: BUDESONIDE-FORMOTEROL 160/4.5 MCG INHALER INH SCH ×2 (08:32→20:04)
[2016-12-13] MEDS: FOLIC ACID 1 MG TAB PO SCH (08:33)
[2016-12-13] MEDS: POTASSIUM CHLORIDE 20 MEQ CONTROLLED RELEASE TAB PO SCH ×2 (08:33→10:26)
[2016-12-13] MEDS: METOPROLOL TARTRATE 50 MG TAB PO SCH ×2 (08:33→20:03)
[2016-12-13] MEDS: POTASSIUM CHLORIDE 10 MEQ CONTROLLED RELEASE TAB PO SCH (08:33)
[2016-12-13] MEDS: THIAMINE HCL 100 MG TAB PO SCH (08:34)
[2016-12-13] MEDS: ASPIRIN 81 MG CHEW TAB CHEW SCH (08:34)
[2016-12-13] MEDS: SODIUM CHLORIDE 0.9% FLUSH 10 ML FLUSH IV FLUSH SCH ×2 (08:34→20:05)
[2016-12-13] MEDS: HYDROCHLOROTHIAZIDE 25 MG TAB PO SCH (08:34)
[2016-12-13] MEDS: ISOSORBIDE MONONITRATE 60 MG TAB PO SCH (08:35)
[2016-12-13] MEDS: ACETAMINOPHEN/HYDROcodone 325 MG/10 MG TAB PO PRN (08:37)
[2016-12-13] MEDS: DOCUSATE SODIUM 50 MG/SENNA 8.6 MG TAB PO SCH ×2 (09:00→20:03)
[2016-12-13] MEDS ORDERED: POTASSIUM CHLOR 20 MEQ PREMIX 100 ML IV ONE (09:30)
[2016-12-13] MEDS ORDERED: POTASSIUM CHLORIDE 20 MEQ CONTROLLED RELEASE TAB PO ONE (09:30)
--- NOTE | 2016-12-13 10:14 | HHI.PR ---
Subjective Remarks Patient sitting on the edge of the bed having nasal cannula on he was on 2 L however he was at 88, I discussed with the nurse and the respiratory day had to increase it to 5 L again Patient stated he quit smoking 25 years ago, patient transferred from [employer] seam[employer] service he was seen by precast molder plan for PFT as an outpatient, started on Symbicort, DuoNeb. Currently he denied chest pain fever or chills coughing Objective Vitals Vital Signs Date Time Temp Pulse Resp B/P Pulse Ox O2 Delivery O2 Flow Rate FiO2 12/13/16 09:25 97 Nasal Cannula 2.00 12/13/16 09:18 98 Nasal Cannula 4.00 12/13/16 09:00 97 Nasal Cannula 4.00 12/13/16 08:10 99 Nasal Cannula 5.00 12/13/16 07:53 98 Simple Mask 6.00 12/13/16 07:45 99.1 92 20 128/63 95 12/13/16 07:45 95 Simple Mask 8.00 12/13/16 07:00 62 12/13/16 04:00 72 12/13/16 04:00 98.1 73 22 154/77 95 12/13/16 04:00 95 Bi-Pap 40 12/13/16 03:28 92 40 12/13/16 03:00 91 Bi-Pap 40 12/13/16 00:00 96 Bi-Pap 35 12/13/16 00:00 96 12/13/16 00:00 96 18 169/84 96 12/12/16 23:56 97 35 12/12/16 22:00 99 Simple Mask 9.00 12/12/16 21:06 95 Nasal Cannula 4.00 12/12/16 20:00 84 12/12/16 20:00 98.2 84 20 131/65 94 12/12/16 20:00 94 Nasal Cannula 4.00 12/12/16 15:00 99.0 73 20 119/60 92 12/12/16 11:24 91 35 12/12/16 11:00 98.4 72 12 131/63 96 I/O 12/12/16 12/12/16 12/12/16 12/13/16 12/13/16 12/13/16 06:59 14:59 22:59 06:59 14:59 22:59 Intake Total 480 ml 720 ml 480 ml Output Total 1250 ml 1050 ml 600 ml Balance -770 ml -330 ml -120 ml Intake Oral 480 ml 720 ml 480 ml IV Total 0 ml 0 ml Output Urine Total 1250 ml 1050 ml 600 ml # Bowel Movements 0 0 0 Result Diagram: 12/13/1643512/13/16435 Objective Remarks GENERAL: This is a well-nourished, well-developed patient, in no apparent distress. CARDIOVASCULAR: Regular rate and rhythm without murmurs, gallops, or rubs. RESPIRATORY: Diffuse expiratory wheezes, diminish breath sounds bilaterally. GASTROINTESTINAL: Abdomen soft, non-tender,nondistended. Normal active bowel sounds MUSCULOSKELETAL: Extremities without clubbing, cyanosis, or edema. NEURO: Alert & Oriented x4 to person, place, time, situation. Moves all ext x4 A/P Problem List: (1) Intractable back pain ICD Code: M54.9 Status: Acute (2) Fall ICD Code: W19.XXXA Status: Acute Assessment and Plan 76 y/o male with: Acute resp failure requiring BIPAP Probable COPD Acute on chronic resp acidosis sec to probable COPD, narcotics HTN CAD H/o CABG Edema Hyperlipidemia Chronic back pain H/o spinal fusion by Dr. Caceres Plan: Hyperkalemia> replete and the repeat BMP and BNP in a.m. Home O2 test in a.m. Continue O2 he needed 5 L today desaturate below 88 patient may need home O2 DuoNeb, Symbicort, Solu-Medrol iv tapering Need to be very cautious with narcotic Continue Lasix Continue home O2 for the rest of medical problem ED prophylaxis with SCD and heparin Renay Little MD Dec 13, 2016 10:14
[2016-12-13] MEDS: FUROSEMIDE 20 MG/2 ML VIAL IV PUSH SCH (10:25)
[2016-12-13] MEDS ORDERED: GLUCAGON 1 MG/ML VIAL OTHER PRN (12:15)
[2016-12-13] MEDS ORDERED: DEXTROSE 50% IN WATER 50 ML VIAL(D50) IV PUSH PRN (12:15)
[2016-12-13] MEDS: LOW DOSE INSULIN NOVOLIN REGULAR SUPPLEMENTAL SCALE SQ SCH ×2 (16:24→20:28)
--- NOTE | 2016-12-13 19:56 | HHI.PR ---
Subjective Remarks 76 YOWM with Ch Back pain, has titaneum rods came with Back pain Found to have Hypercapnoic RF Used CPAp Much better no Known COPD has h/o smoking in the past Objective Vital Signs Vital Signs Date Time Temp Pulse Resp B/P Pulse Ox O2 Delivery O2 Flow Rate FiO2 12/13/16 17:25 89 21 12/13/16 15:41 98.6 60 18 109/52 95 12/13/16 15:41 95 Nasal Cannula 4.00 12/13/16 15:07 60 12/13/16 11:30 57 12/13/16 11:24 95 Nasal Cannula 4.00 12/13/16 11:24 97.7 64 18 108/52 95 12/13/16 10:00 95 Nasal Cannula 5.00 12/13/16 09:40 86 Nasal Cannula 5.00 12/13/16 09:25 97 Nasal Cannula 2.00 12/13/16 09:18 98 Nasal Cannula 4.00 12/13/16 09:00 97 Nasal Cannula 4.00 12/13/16 08:10 99 Nasal Cannula 5.00 12/13/16 07:53 98 Simple Mask 6.00 12/13/16 07:45 99.1 92 20 128/63 95 12/13/16 07:45 95 Simple Mask 8.00 12/13/16 07:00 62 12/13/16 04:00 72 12/13/16 04:00 98.1 73 22 154/77 95 12/13/16 04:00 95 Bi-Pap 40 12/13/16 03:28 92 40 12/13/16 03:00 91 Bi-Pap 40 12/13/16 00:00 96 Bi-Pap 35 12/13/16 00:00 96 12/13/16 00:00 96 18 169/84 96 12/12/16 23:56 97 35 12/12/16 22:00 99 Simple Mask 9.00 12/12/16 21:06 95 Nasal Cannula 4.00 12/12/16 20:00 84 12/12/16 20:00 98.2 84 20 131/65 94 12/12/16 20:00 94 Nasal Cannula 4.00 I/O 12/12/16 12/12/16 12/12/16 12/13/16 12/13/16 12/13/16 07:00 15:00 23:00 07:00 15:00 23:00 Intake Total 480 ml 720 ml 480 ml 2254 ml Output Total 1250 ml 1050 ml 600 ml 695 ml Balance -770 ml -330 ml -120 ml 1559 ml Intake Oral 480 ml 720 ml 480 ml 2040 ml IV Total 0 ml 0 ml 214 ml Output Urine Total 1250 ml 1050 ml 600 ml 695 ml # Bowel Movements 0 0 0 0 Result Diagram: 12/13/1643512/13/16435 Objective Remarks GENERAL: WBWN Male, mild pain SKIN: Warm and dry. HEAD: Normocephalic. EYES: No scleral icterus. No injection or drainage. NECK: Supple, trachea midline. No JVD or lymphadenopathy. CARDIOVASCULAR: Regular rate and rhythm without murmurs, gallops, or rubs. RESPIRATORY: Breath sounds equal bilaterally. No accessory muscle use. GASTROINTESTINAL: Abdomen soft, non-tender, nondistended. MUSCULOSKELETAL: No cyanosis, or edema. BACK: Nontender without obvious deformity. No CVA tenderness. A/P Assessment and Plan Hypercapnoic RF improved CAD, s/p CABG. Ch back pain Obesity PLAN: Wean 02 DC Solumedrol Aerosol nebs PFT Kian Busby MD Dec 13, 2016 19:56
[2016-12-13] MEDS: ATORVASTATIN 80 MG TAB PO SCH (20:03)
[2016-12-13] MEDS: ACETAMINOPHEN/HYDROcodone 325 MG/5 MG TAB PO PRN (20:25)
[2016-12-14] MEDS: ACETAMINOPHEN/HYDROcodone 325 MG/5 MG TAB PO PRN (02:18)
[2016-12-14] MEDS: HEPARIN SODIUM - SQ 10,000 UNITS/ML VIAL SQ SCH ×2 (02:18→09:19)
[2016-12-14 03:00] VITALS: BP 116/58; PULSE 89; RESP 18; TEMP 98.4; O2SAT 95
[2016-12-14] MEDS: RESP: ALBUTEROL 2.5 MG/IPRATROPIUM 0.5 MG NEB (SCH) NEB ×3 (03:36→12:14)
[2016-12-14 04:50] LABS: BICARBONATE 37.3 MEQ/L (21.0-32.0); POTASSIUM 3.6 MEQ/L (3.5-5.1)
[2016-12-14] MEDS: ACETAMINOPHEN/HYDROcodone 325 MG/10 MG TAB PO PRN (05:30)
[2016-12-14] MEDS: LOW DOSE INSULIN NOVOLIN REGULAR SUPPLEMENTAL SCALE SQ SCH ×2 (06:57→11:23)
[2016-12-14 07:00] VITALS: BP 126/60; PULSE 60; PULSE 69; RESP 16; TEMP 98.5; O2SAT 97
[2016-12-14 08:46] VITALS: O2SAT 93
[2016-12-14] MEDS: ISOSORBIDE MONONITRATE 60 MG TAB PO SCH (09:00)
[2016-12-14] MEDS: SODIUM CHLORIDE 0.9% FLUSH 10 ML FLUSH IV FLUSH SCH (09:00)
[2016-12-14] MEDS: FUROSEMIDE 20 MG/2 ML VIAL IV PUSH SCH (09:00)
[2016-12-14] MEDS: ASPIRIN 81 MG CHEW TAB CHEW SCH (09:17)
[2016-12-14] MEDS: DOCUSATE SODIUM 50 MG/SENNA 8.6 MG TAB PO SCH (09:18)
[2016-12-14] MEDS: METOPROLOL TARTRATE 50 MG TAB PO SCH (09:18)
[2016-12-14] MEDS: HYDROCHLOROTHIAZIDE 25 MG TAB PO SCH (09:18)
[2016-12-14] MEDS: POTASSIUM CHLORIDE 10 MEQ CONTROLLED RELEASE TAB PO SCH (09:18)
[2016-12-14] MEDS: FOLIC ACID 1 MG TAB PO SCH (09:18)
[2016-12-14] MEDS: THIAMINE HCL 100 MG TAB PO SCH (09:18)
[2016-12-14] MEDS: BUDESONIDE-FORMOTEROL 160/4.5 MCG INHALER INH SCH (09:23)
[2016-12-14 11:00] VITALS: BP 118/66; PULSE 60; PULSE 61; RESP 16; TEMP 97.7; O2SAT 94
--- NOTE | 2016-12-14 11:02 | HHI.PR ---
Subjective Remarks Feels improved today. Pain is controlled by med. No n/v/d/c. Denies chest pain or sob. However he is noted dessating without O2. o fever or chills. No cough. Failed O2 walking test needs O2 at home CM following for DC plan Objective Vitals Vital Signs Date Time Temp Pulse Resp B/P Pulse Ox O2 Delivery O2 Flow Rate FiO2 12/14/16 08:46 93 Nasal Cannula 1.00 12/14/16 07:00 60 12/14/16 07:00 97 Nasal Cannula 2.00 12/14/16 07:00 98.5 69 16 126/60 97 12/14/16 06:30 18 12/14/16 03:20 18 12/14/16 03:00 95 Nasal Cannula 4.00 12/14/16 03:00 89 12/14/16 03:00 98.4 89 18 116/58 95 12/13/16 23:51 94 Nasal Cannula 5.00 12/13/16 23:00 98.2 63 18 110/49 93 12/13/16 23:00 63 12/13/16 23:00 93 Nasal Cannula 4.00 12/13/16 21:17 90 Nasal Cannula 1.00 12/13/16 19:00 71 12/13/16 19:00 91 Nasal Cannula 1.00 12/13/16 19:00 98.5 71 18 118/63 91 12/13/16 17:25 89 21 12/13/16 15:41 98.6 60 18 109/52 95 12/13/16 15:41 95 Nasal Cannula 4.00 12/13/16 15:07 60 12/13/16 11:30 57 12/13/16 11:24 95 Nasal Cannula 4.00 12/13/16 11:24 97.7 64 18 108/52 95 I/O 12/13/16 12/13/16 12/13/16 12/14/16 12/14/16 12/14/16 06:59 14:59 22:59 06:59 14:59 22:59 Intake Total 480 ml 2254 ml 210 ml Output Total 600 ml 695 ml 1000 ml Balance -120 ml 1559 ml -790 ml Intake Oral 480 ml 2040 ml 210 ml IV Total 214 ml 0 ml Output Urine Total 600 ml 695 ml 1000 ml # Bowel Movements 0 0 0 Result Diagram: 7/3/17 0436 12/14/16 [address] Angiography 12/12/16 Signed Impressions: Service Date/Time: Monday, December 12, 2016 15:35 - CONCLUSION: 1. Negative for pulmonary embolus. Enlarged central pulmonary arteries. There are severe coronary artery calcifications. Post Operative CABG. Joe Leonardo MD Thoracic Spine X-Ray 12/11/16 Signed Impressions: Service Date/Time: Sunday, December 11, 2016 14:40 - CONCLUSION: 1. Previous fusion across the lower thoracic and lumbar spine. No acute fracture. Moderate degenerative disc disease throughout. Mild scoliosis. Joe Leonardo MD Lumbar Spine X-Ray 12/11/16 Signed Impressions: Service Date/Time: Sunday, December 11, 2016 14:41 - CONCLUSION: 1. Previous fixation of the lower thoracic and lumbar spine to L4. Left-sided fixation eleno is broken at the level of L2. Minimal retrolisthesis of L4 on L5 with advanced degenerative disc disease. Chronic retrolisthesis of L3 on L4 status post fusion. Joe Leonardo MD Lumbar Spine CT 12/11/16 Signed Impressions: Service Date/Time: Sunday, December 11, 2016 16:51 - CONCLUSION: 1. Postoperative spinal fixation as above. Left-sided fixation eleno is broken at the level of L2. 2. Grade 1 retrolisthesis of L3 on L4 which is fused. 3. No significant bony central canal stenosis. Mild scoliosis. 4. No acute fracture. 5. Incidental small right pleural effusion. Joe Leonardo MD Head CT 12/11/16 Signed Impressions: Service Date/Time: Sunday, December 11, 2016 16:47 - CONCLUSION: Normal examination for a patient of this age. Joe Leonardo MD Chest X-Ray 12/11/16 Signed Impressions: Service Date/Time: Sunday, December 11, 2016 22:37 - CONCLUSION: Normal examination. Status post CABG Corey Mayes MD Objective Remarks GENERAL: This is a well-nourished, well-developed patient, in no apparent distress. CARDIOVASCULAR: Regular rate and rhythm without murmurs, gallops, or rubs. RESPIRATORY: Diffuse expiratory wheezes, diminish breath sounds bilaterally. GASTROINTESTINAL: Abdomen soft, non-tender,nondistended. Normal active bowel sounds MUSCULOSKELETAL: Extremities without clubbing, cyanosis, or edema. NEURO: Alert & Oriented x4 to person, place, time, situation. Moves all ext x4 A/P Problem List: (1) Intractable back pain ICD Code: M54.9 Status: Acute (2) Fall ICD Code: W19.XXXA Status: Acute Assessment and Plan 76 y/o male with: Acute resp failure requiring BIPAP. Resolving. Now satting [facility] . Failed O2 walking test , needs O2 at home. Probable COPD Acute on chronic resp acidosis sec to probable COPD, narcotics HTN CAD H/o CABG Edema Hyperlipidemia Chronic back pain H/o spinal fusion by Dr. Caceres Plan: Hypokalemia> replaced monitor and replace as need Home O2 test Continue O2 he needed 5 L today desaturate below 88 patient may need home O2 Continue DuoNeb, Symbicort, Solu-Medrol iv tapering Need to be very cautious with narcotic Continue Lasix Continue home O2 for the rest of medical problem DVT prophylaxis with SCD and heparin Failed O2 walking test needs O2 at home CM following for DC plan. Patient improved, discharge home in stable condition, to follow up as OP with PCP and consultants. Mary Storm MD Dec 14, 2016 11:02
--- NOTE | 2016-12-14 11:51 | HHI.DS ---
Discharge Summary Admission Date Dec 11, 2016 at 22:34 Discharge Date: Dec 14, 2016 Admitting Diagnosis intractable back pain (1) Acute respiratory failure ICD Code: J96.00 Diagnosis: Principal (2) Intractable back pain ICD Code: M54.9 Diagnosis: Principal (3) Fall ICD Code: W19.XXXA Diagnosis: Principal Procedures none Brief History - From Admission Written by Maty Steel, acting as scribe for Dr. Little on 12/11/16 at 17:35. Patient is a 76 year old male with primary medical history of HTN, HLD , bladder cancer treated, back surgery in the past who came into the hospital for complaints of severe lower back pain. As per patient pain was 10-1/2 over 10 when he first came in prior to being given pain medication. Now reports that the pain is 8/10, constant, sharp, associated with heavy breathing, relieved by pain medication - given morphine IV. He states that he had a slip and fall backward on his back and had a couple of days ago without any loss of consciousness. States that he have back surgery with eleno [place] [address] Tiago Caceres. Patient also reports bilateral lower extremity edema that has been going on for 2 weeks, on and off. He is being seen by [facility] and is to schedule appointment for next month. Denies SOB/ dyspnea. Denies chest pain, palpitations, headaches, dizziness. Denies fevers, chills, n/v/d. Denies dysuria. CBC/BMP: 12/13/16 0436 12/14/16 0423 Significant Findings Laboratory Tests Test 12/11/16 12/11/16 12/11/16 12/12/16 15:05 16:45 22:35 03:23 Carbon Dioxide Level 36.2 MEQ/L (21.0-32.0) Monocytes (%) (Auto) 13.7 % (0.0-8.0) Monocytes # (Auto) 1.1 TH/MM3 (0-0.9) Blood Gas HCO3 38 mmol/L 36 mmol/L (22-26) (22-26) Blood Gas Base Excess 11.7 mmol/L 9.7 mmol/L (-2-2) (-2-2) Arterial Blood pH 7.32 7.29 (7.380-7.420) (7.380-7.420) Arterial Blood Partial 77 mmHg (38-42) 78 mmHg (38-42) Pressure CO2 Arterial Blood Partial 288 mmHG Pressure O2 (61-120) Arterial Blood Oxygen Content 20.7 Vol % 20.5 Vol % (12.0-20.0) (12.0-20.0) Test 12/12/16 12/12/16 12/12/16 12/13/16 06:00 09:27 12:54 04:36 Blood Gas HCO3 37 mmol/L 37 mmol/L (22-26) (22-26) Blood Gas Base Excess 10.2 mmol/L 11.0 mmol/L (-2-2) (-2-2) Arterial Blood pH 7.28 7.36 (7.380-7.420) (7.380-7.420) Arterial Blood Partial 82 mmHg (38-42) 66 mmHg (38-42) Pressure CO2 Arterial Blood Oxygen Content 20.3 Vol % (12.0-20.0) Carbon Dioxide Level 38.4 MEQ/L 41.0 MEQ/L (21.0-32.0) (21.0-32.0) Anion Gap 4 MEQ/L (5-15) 3 MEQ/L (5-15) Blood Urea Nitrogen 20 MG/DL (7-18) Random Glucose 122 MG/DL 215 MG/DL (74-106) (74-106) Platelet Count 148 TH/MM3 (150-450) Neutrophils (%) (Auto) 88.6 % (16.0-70.0) Lymphocytes (%) (Auto) 6.5 % (9.0-44.0) Lymphocytes # (Auto) 0.4 TH/MM3 (1.0-4.8) Potassium Level 2.9 MEQ/L (3.5-5.1) Chloride Level 95 MEQ/L (98-107) Creatinine 0.58 MG/DL (0.60-1.30) Test 12/14/16 04:23 Chloride Level 95 MEQ/L (98-107) Carbon Dioxide Level 37.3 MEQ/L (21.0-32.0) Blood Urea Nitrogen 26 MG/DL (7-18) Random Glucose 189 MG/DL (74-106) B-Type Natriuretic Peptide 163 PG/ML (0-100) Imaging Last Impressions CT Angiography 12/12/16 Signed Impressions: Service Date/Time: Monday, December 12, 2016 15:35 - CONCLUSION: 1. Negative for pulmonary embolus. Enlarged central pulmonary arteries. There are severe coronary artery calcifications. Post Operative CABG. Joe Leonardo MD Thoracic Spine X-Ray 12/11/16 Signed Impressions: Service Date/Time: Sunday, December 11, 2016 14:40 - CONCLUSION: 1. Previous fusion across the lower thoracic and lumbar spine. No acute fracture. Moderate degenerative disc disease throughout. Mild scoliosis. Joe Leonardo MD Lumbar Spine X-Ray 12/11/16 Signed Impressions: Service Date/Time: Sunday, December 11, 2016 14:41 - CONCLUSION: 1. Previous fixation of the lower thoracic and lumbar spine to L4. Left-sided fixation eleno is broken at the level of L2. Minimal retrolisthesis of L4 on L5 with advanced degenerative disc disease. Chronic retrolisthesis of L3 on L4 status post fusion. Joe Leonardo MD Lumbar Spine CT 12/11/16 Signed Impressions: Service Date/Time: Sunday, December 11, 2016 16:51 - CONCLUSION: 1. Postoperative spinal fixation as above. Left-sided fixation eleno is broken at the level of L2. 2. Grade 1 retrolisthesis of L3 on L4 which is fused. 3. No significant bony central canal stenosis. Mild scoliosis. 4. No acute fracture. 5. Incidental small right pleural effusion. Joe Leonardo MD Head CT 12/11/16 Signed Impressions: Service Date/Time: Sunday, December 11, 2016 16:47 - CONCLUSION: Normal examination for a patient of this age. Joe Leonardo MD Chest X-Ray 12/11/16 Signed Impressions: Service Date/Time: Sunday, December 11, 2016 22:37 - CONCLUSION: Normal examination. Status post CABG Corey Mayes MD PE at Discharge GENERAL: This is a well-nourished, well-developed patient, in no apparent distress. CARDIOVASCULAR: Regular rate and rhythm without murmurs, gallops, or rubs. RESPIRATORY: Diffuse expiratory wheezes, diminish breath sounds bilaterally. GASTROINTESTINAL: Abdomen soft, non-tender,nondistended. Normal active bowel sounds MUSCULOSKELETAL: Extremities without clubbing, cyanosis, or edema. NEURO: Alert & Oriented x4 to person, place, time, situation. Moves all ext x4 Hospital Course 76 y/o male with: Acute resp failure requiring BIPAP. Resolving. Now satting [facility] . Failed O2 walking test , needs O2 at home. Probable COPD Acute on chronic resp acidosis sec to probable COPD, narcotics HTN CAD H/o CABG Edema Hyperlipidemia Chronic back pain H/o spinal fusion by Dr. Caceres. Patient has an appointment with pain management as OP . also to follow up with Dr Montague as OP. Plan: Hypokalemia> Resolved. K replaced monitor and replace as need Home O2 test , failed. Need O2 at home. Continue O2 he needed 5 L today desaturate below 88 patient may need home O2 Continue DuoNeb, Symbicort, Solu-Medrol iv tapering Need to be very cautious with narcotic Continue Lasix Continue home O2 for the rest of medical problem DVT prophylaxis with SCD and heparin Failed O2 walking test needs O2 at home CM following for DC plan. Patient improved, discharge home in stable condition, to follow up as OP with PCP and consultants. Pt Condition on Discharge: Stable Discharge Disposition: Disch w/ Home Health Serv Discharge Time: > 30 minutes Discharge Instructions DIET: Follow Instructions for: Heart Healthy Diet, Diabetic Diet Activities you can perform: Regular-No Restrictions Follow up Referrals: Orthopedics - 1 Week with Tiago Montague MD PCP Follow-up - 3-5 Days New Medications: Hydrocodone-Acetaminophen ([place]) 5-325 mg Tab 1-2 TAB PO Q6H PRN PAIN #30 Ref 0 TAB Oxygen (O2) (Oxygen (O2)) Device 2 LITER CLYDE.CANULA CONTINUOUS Oxygen Concentrator Portable Gaseous 2 L/min via Nasal Canula Continuous For 99 months Prevent Hypoxemia #2 CYLINDER Prednisone (21) 10 mg tab Dose Pack (Prednisone (21) 10 mg tab Dose Pack) 10 Mg Pack 10 MG PO DIRECTED Inflammation #1 Ref 0 DSPK Folic Acid (Folic Acid) 1 Mg Tablet 1 MG PO DAILY mvt #30 TAB Sennosides-Docusate Sodium (Senna Plus 8.6-50 mg) 1 Tab Tab 1 TAB PO BID Constipation #60 TAB Thiamine HCl (Gnp Vitamin B-1) 100 Mg Tab 100 MG PO DAILY mvt #30 TAB Continued Medications: Amlodipine (Amlodipine) 10 Mg Tab 10 MG PO DAILY Blood Pressure Management #30 Ref 0 TAB Aspirin (Aspirin) 81 Mg Chew 81 MG CHEW DAILY Ref 0 TAB Atorvastatin (Atorvastatin) 80 Mg Tab 80 MG PO HS Cholesterol Management #30 Ref 0 TAB Hydrochlorothiazide (Hydrochlorothiazide) 25 Mg Tab 25 MG PO DAILY #30 Ref 0 TAB Isosorbide Mononitrate ER (Isosorbide Mononitrate ER) 60 Mg Tab 60 MG PO DAILY Prevent Chest Pain #30 Ref 0 TAB Metoprolol Tartrate (Metoprolol Tartrate) 50 Mg Tab 50 MG PO BID #60 Ref 0 TAB Naproxen (Naproxen) 250 Mg Tab 220 MG PO BID #60 Ref 0 TAB Mary Storm MD Dec 14, 2016 11:51
--- NOTE | 2016-12-14 11:51 | HHI.FF ---
Face to Face Verification Diagnosis: (1) Intractable back pain (2) Fall (3) Acute respiratory failure Physical Therapy Order: Evaluate and Treat Home Health Nursing Order: Medical education Signs/symptoms of disease process Oxygen administration education Medication education-adverse effect Nursing assessment with vital signs I have seen patient Fly Myers on 12/14/16. My clinical findings support the need for the requested home health care services because: Ltd mobility - disease progression Patient has SOB I certify that my clinical findings support that this patient is homebound because: Post-op weakness Unsteady gait/balance Mary Storm MD Dec 14, 2016 11:51
[2016-12-14] MEDS ORDERED: FOLI1TAB6 PO (11:53)
[2016-12-14] MEDS ORDERED: SENN1TAB PO (11:53)
[2016-12-14] MEDS ORDERED: NORC5TAB PO (11:53)
[2016-12-14] MEDS ORDERED: GNP100TA3 PO (11:53)
[2016-12-14] MEDS ORDERED: PRED10PA PO (12:01)
[2016-12-14] MEDS ORDERED: OXYGENDME NAS.CANULA (12:03)
[2016-12-14] MEDS ORDERED: GLUCAGON 1 MG/ML VIAL OTHER PRN (12:15)
[2016-12-14] MEDS ORDERED: DEXTROSE 50% IN WATER 50 ML VIAL(D50) IV PRN (12:15)
--- NOTE | 2016-12-14 14:39 | HHI.PR ---
Subjective Remarks 76 YOWM with Ch Back pain, has titaneum rods came with Back pain Found to have Hypercapnoic RF Used CPAP Much better no Known COPD has h/o smoking in the past PFT suggestive of restrictive disease. Objective Vital Signs Vital Signs Date Time Temp Pulse Resp B/P Pulse Ox O2 Delivery O2 Flow Rate FiO2 12/14/16 11:50 2.00 12/14/16 11:00 94 Nasal Cannula 1.00 12/14/16 11:00 97.7 61 16 118/66 94 12/14/16 11:00 60 12/14/16 08:46 93 Nasal Cannula 1.00 12/14/16 07:00 60 12/14/16 07:00 97 Nasal Cannula 2.00 12/14/16 07:00 98.5 69 16 126/60 97 12/14/16 06:30 18 12/14/16 03:20 18 12/14/16 03:00 95 Nasal Cannula 4.00 12/14/16 03:00 89 12/14/16 03:00 98.4 89 18 116/58 95 12/13/16 23:51 94 Nasal Cannula 5.00 12/13/16 23:00 98.2 63 18 110/49 93 12/13/16 23:00 63 12/13/16 23:00 93 Nasal Cannula 4.00 12/13/16 21:17 90 Nasal Cannula 1.00 12/13/16 19:00 71 12/13/16 19:00 91 Nasal Cannula 1.00 12/13/16 19:00 98.5 71 18 118/63 91 12/13/16 17:25 89 21 12/13/16 15:41 98.6 60 18 109/52 95 12/13/16 15:41 95 Nasal Cannula 4.00 12/13/16 15:07 60 I/O 12/13/16 12/13/16 12/13/16 12/14/16 12/14/16 12/14/16 07:00 15:00 23:00 07:00 15:00 23:00 Intake Total 480 ml 2254 ml 210 ml Output Total 600 ml 695 ml 1000 ml Balance -120 ml 1559 ml -790 ml Intake Oral 480 ml 2040 ml 210 ml IV Total 214 ml 0 ml Output Urine Total 600 ml 695 ml 1000 ml # Bowel Movements 0 0 0 Result Diagram: 12/13/16 0436 12/14/16 0423 Objective Remarks GENERAL: WBWN Male, mild pain SKIN: Warm and dry. HEAD: Normocephalic. EYES: No scleral icterus. No injection or drainage. NECK: Supple, trachea midline. No JVD or lymphadenopathy. CARDIOVASCULAR: Regular rate and rhythm without murmurs, gallops, or rubs. RESPIRATORY: Breath sounds equal bilaterally. No accessory muscle use. GASTROINTESTINAL: Abdomen soft, non-tender, nondistended. MUSCULOSKELETAL: No cyanosis, or edema. BACK: Nontender without obvious deformity. No CVA tenderness. A/P Assessment and Plan Hypercapnoic RF improved CAD, s/p CABG. Ch back pain Obesity PLAN: Wean 02 DC Solumedrol Aerosol nebs 02 Walk test to see if needs home 02 Will FU in office Kian Busby MD Dec 14, 2016 14:39
[2016-12-14 15:00] VITALS: BP 110/57; PULSE 77; RESP 16; TEMP 98.8; O2SAT 96
[2016-12-14] MEDS ORDERED: INSULIN ASPART SUPPLEMENTAL SCALE SQ SCH (16:00)
== END 2016-12-14 16:25 | disposition home health service (06) | DRG 551 ==
LOC: NEPD 13:14 → NEDA 16:26 → NEPGCP 18:07 → OBSVTOIN 22:34 → HCIS 12-12 00:21 → HCVR 12-12 07:47
PROVIDERS: ADMIT Hospitalist; ATTEND Hospitalist
PROC: 5A09357 Assistance with Respiratory Ventilation, Less than 24 Consecutive Hours, Continuous Positive Airway Pressure (ICD-10-PCS; principal; 2016-12-12)
DX: M54.5 Low back pain (principal); J96.02 Acute respiratory failure with hypercapnia; E87.2 Acidosis; J44.1 Chronic obstructive pulmonary disease with (acute) exacerbation; M41.9 Scoliosis, unspecified; I10 Essential (primary) hypertension; I25.10 Atherosclerotic heart disease of native coronary artery without angina pectoris; Z95.1 Presence of aortocoronary bypass graft; E78.5 Hyperlipidemia, unspecified; Z88.0 Allergy status to penicillin; Z85.51 Personal history of malignant neoplasm of bladder; W01.0XXA Fall on same level from slipping, tripping and stumbling without subsequent striking against object, initial encounter; Y93.9 Activity, unspecified; Y92.9 Unspecified place or not applicable; Y99.9 Unspecified external cause status; E66.9 Obesity, unspecified; Z98.1 Arthrodesis status; M51.36 Other intervertebral disc degeneration, lumbar region; Z87.891 Personal history of nicotine dependence; G89.29 Other chronic pain; E87.6 Hypokalemia; Z99.81 Dependence on supplemental oxygen
CPT/HCPCS: 36600; 70450; 71010; 71275; 72072; 72110; 72131; 76937; 80048; 80053; 82805; 82948; 83880; 85025; 93306; 94002; 94003; 94060; 94620; 94640; 94664; J0461; J1644; J1940; J2270; J2920; J2930; J3480; Q9967

== ENCOUNTER → 2016-12-31 | Outpatient (CLI) | payer OTHER ==
[~2016-12-31] MED LIST changes: -1-ME1LIQ PO; +AMLO10TA2 PO; +ASPI81CH CHEW; -ASPI81TA17 PO; +ATOR1TAB18 PO; -CO Q200C3 PO; +FOLI1TAB6 PO; +GNP100TA3 PO; -HYDR-2768 PO; +HYDR25TA5 PO; -MORP30SU PO; +NAPR250T PO; +NORC5TAB PO; +OXYGENDME NAS.CANULA; -PRAV80 PO; +PRED10PA PO; -SEA-1000 PO; +SENN1TAB PO; -TAB-TAB PO
[2016-12-31 11:59] LABS: BLOOD GAS BASE EXCESS 3.9 mmol/L (-2-2); BLOOD GAS CARBOXYHEMOGLOBIN 1.7 % (0-4); BLOOD GAS HCO3 28 mmol/L (22-26); BLOOD GAS METHEMOGLOBIN 1.5 % (0-2); BLOOD GAS O2 HGB SATURATION 92 % (90-100); BLOOD GAS OXYGEN CONTENT 21.2 Vol % (12.0-20.0); BLOOD GAS PCO2 44 mmHg (38-42); BLOOD GAS PO2 77 mmHg (61-120); BLOOD GAS TOTAL HGB 16.5 G/DL (12.0-16.0); CRITICAL VALUE NO; DRAW SITE RT RADIAL; FIO2 21 %; NUMBER OF ARTERIAL PUNCTURES 1; STAT NO; TEMP CORR TO 98.6; ULNAR PULSE PRESENT
--- NOTE | 2017-01-04 09:05 | RSPPFT ---
DATE OF PROCEDURE: 12/31/16 COMMENTS: Spirometry with FVC of 1.4 at 64% of predicted, FEV1 of 1.0 at 59%, FEV1/FVC ratio is decreased. Flow is decreased at FEF 25, FEF 50, FEF 75 and FEF 25-75. There is a good response after bronchodilator treatment. Lung volumes show residual volume is increased. TLC is normal. Diffusion capacity is decreased. Flow volume loop indicates an obstructive pattern. Room air arterial blood gases show pH of 7.45, PCO2 of 44, PO2 of 71, BiCarb of 28. 6-minute walk test shows no de-saturation. IMPRESSION: 1. Moderately severe obstructive disease. 2. Good response after bronchodilator treatment. 3. Lung volumes show mild hyperinflation. 4. Mild decrease in diffusion capacity. 5. Blood gases show mild hypoxia. 6. 6-minute walk test shows no de-saturation.
== END ==
LOC: HRSP 10:41
PROVIDERS: ATTEND Specialist
DX: J44.9 Chronic obstructive pulmonary disease, unspecified (principal); R06.00 Dyspnea, unspecified
CPT/HCPCS: 36600; 82805; 94060; 94620; 94726; 94729